=== PATIENT | female | born 1990 | race African-American/Black ===

== ENCOUNTER 2016-07-12 06:24 | Emergency (ER) | payer SELFPAY ==
[~2016-07-12 06:24] MED LIST: BACT800T5 PO; IBUP-232 PO; TRAM50 PO
[2016-07-12 06:33] VITALS: BP 116/71; PULSE 118; RESP 20; TEMP 98.6; O2SAT 94
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
[2016-07-12 06:39] VITALS: BP 116/71; PULSE 118; RESP 20; TEMP 98.6; O2SAT 95
[2016-07-12] MEDS ORDERED: ACETAMINOPHEN 325 MG TAB PO ONE (07:00)
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
[2016-07-12 11:00] VITALS: BP 97/66; PULSE 77; RESP 13; TEMP 97.8; O2SAT 96
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
== END 2016-07-12 11:57 | disposition home or self-care (01) ==
LOC: NEPC 06:24
DX: M54.2 Cervicalgia (principal); Y04.8XXA Assault by other bodily force, initial encounter; Y04.2XXA Assault by strike against or bumped into by another person, initial encounter
CPT/HCPCS: 70450; 72125; 99285